=== PATIENT | female | born 1950 | race Caucasian/White ===

== ENCOUNTER 2018-07-30 06:21 | Inpatient (IN) | payer MEDICARE ==
[2018-07-29 17:17] VITALS: BMI 28.3
[2018-07-30] MEDS ORDERED: Rocuronium 10 mg/ml (5 ml) ONE (07:00)
[2018-07-30] MEDS ORDERED: Propofol 10 mg/ml Inj (20 ML) ONE (07:00)
[2018-07-30] MEDS ORDERED: Succinylcholine Chloride 20 mg/ml Syr (5 ml) IV ONE (07:00)
[2018-07-30] MEDS ORDERED: Lidocaine 4% (Laryng-O-Jet) Kit MM ONE (07:07)
[2018-07-30] MEDS ORDERED: ceFAZolin IV 1 gm in Dextrose 2 GM/100 ML BAG IVPB ONE (07:09)
[2018-07-30] MEDS ORDERED: Absorbable Gelatin Sponge Size 12-7 ONE (07:09)
[2018-07-30] MEDS ORDERED: Lidocaine 1% w Epi 1:100,000 Inj ONE (07:09)
[2018-07-30] MEDS ORDERED: Bupivacaine 0.5% Inj(30mL) ONE (07:09)
[2018-07-30] MEDS ORDERED: Thrombin Topical 5,000 Int Units Spray Kit ONE (07:10)
[2018-07-30] MEDS ORDERED: Phenylephrine 10 mg/ml Inj ONE (07:11)
--- NOTE | 2018-07-30 07:25 | CP.PCM.CON ---
History of Present Illness - History of Present Illness History of Present Illness: Neurosurgical H&P/consult Patient is a 68 y/o female who presents for elective lumbar laminotomy. The patient has had chronic lower back pain for many years. Over the past few months the pain has progressively worsened, with new symptoms of radiating pain/numbness/tingling to both LE, worse to the RLE. Her symptoms have been resistant to conservative means, with PT and oral medications. She has had much difficulties with her daily activities such as walking and sitting due to her pain. She denies any bowel/bladder dysfunction. She also denies CP/SOB/N/V/D/fever/dysuria/melena. Review of Systems - Review of Systems All systems: reviewed and no additional remarkable complaints except Review of Systems: as per HPI Past Patient History - Past Medical History & Family History Past Medical History?: Yes Past Family History: Reviewed and not pertinent - Past Social History Smoking Status: Never Smoked Alcohol: None Drugs: Denies - CARDIAC Hx Cardiac Disorders: Yes Hx Hypercholesterolemia: Yes Hx Hypertension: Yes - PULMONARY Hx Respiratory Disorders: No - NEUROLOGICAL Hx Neurological Disorder: No Other/Comment: NUMBNESS AND TINGLING SENSATION BOTH LEGS-PINGED NERVE ON THE RIGHT SIDE - HEENT Hx HEENT Problems: No - RENAL Hx Chronic Kidney Disease: No - ENDOCRINE/METABOLIC Hx Endocrine Disorders: Yes Hx Diabetes Mellitus Type 2: Yes - HEMATOLOGICAL/ONCOLOGICAL Hx Blood Disorders: No Hx Blood Transfusions: No - INTEGUMENTARY Hx Dermatological Problems: No - MUSCULOSKELETAL/RHEUMATOLOGICAL Hx Musculoskeletal Disorders: Yes Hx Arthritis: Yes Hx Falls: No - GASTROINTESTINAL Hx Gastrointestinal Disorders: No - GENITOURINARY/GYNECOLOGICAL Hx Genitourinary Disorders: No - PSYCHIATRIC Hx Psychophysiologic Disorder: No - SURGICAL HISTORY Hx Surgeries: Yes Other/Comment: EXPLOR LAP-1976 - ANESTHESIA Hx Anesthesia: Yes Hx Anesthesia Reactions: No Hx Malignant Hyperthermia: No Has any member of the family had a problem w/ anesthesia?: No Meds Allergies/Adverse Reactions: Allergies Allergy/AdvReac Type Severity Reaction Status Date / Time No Known Allergies Allergy Verified 07/29/18 17:17 Physical Exam - Constitutional Appears: Well, No Acute Distress - Head Exam Head Exam: ATRAUMATIC, NORMOCEPHALIC - Eye Exam Eye Exam: EOMI, Normal appearance, PERRL - ENT Exam ENT Exam: Mucous Membranes Moist - Respiratory Exam Respiratory Exam: NORMAL BREATHING PATTERN - Extremities Exam Extremities exam: Positive for: normal inspection - Back Exam Additional comments: mild midline and paraspinal tenderness b/l no lesions/masses/erythema sensation intact SP/DP/TN motor intact EHL/FHL/TA/G neg clonus neg SLR b/l - Neurological Exam Neurological exam: Alert, CN II-XII Intact, Oriented x3 - Psychiatric Exam Psychiatric exam: Normal Affect, Normal Mood - Skin Skin Exam: Normal Color, Warm Assessment & Plan (1) Lumbar spondylosis Assessment and Plan: -OR today for lumbar laminotomy L3-4, possible other levels -Risks/benefits/alternatives explained to patient who understands and agrees to proceed with above procedure. -NPO -Medical/cardiac clearance in chart -above d/w Dr. Chambers in agreement Status: Acute
[2018-07-30] MEDS ORDERED: Oxycodone/Acetaminophen 5/325 mg Tab PO PRN ×2 (07:32)
[2018-07-30] MEDS ORDERED: Lactated Ringer's 1,000 ML IV ONE (07:45)
[2018-07-30] MEDS ORDERED: Sodium Chloride 0.9% 1,000 ML IV SCH (07:45)
[2018-07-30] MEDS ORDERED: Dexamethasone 4 mg/1 ml ONE (08:22)
[2018-07-30] MEDS ORDERED: ePHEDrine 50 mg/ml Inj ONE (08:29)
[2018-07-30] MEDS ORDERED: Sodium Chloride 0.9% 10 ML IV ONE (08:29)
[2018-07-30] MEDS ORDERED: Neostigmine 1:1000 (1 mg/ml) Inj ONE (08:45)
[2018-07-30] MEDS ORDERED: Bupivacaine 0.5% 50 ML IJ ONE ×2 (08:52→08:57)
[2018-07-30] MEDS ORDERED: ceFAZolin 1 GM in Sodium Chloride 0.9% 100 ML IVPB SCH (09:00)
[2018-07-30] MEDS: Lactated Ringer's 1,000 ML IV SCH ×2 (09:15→20:00)
[2018-07-30] MEDS ORDERED: HYDROmorphone 0.5 mg/0.5 ml ISec IVP PRN (09:24)
--- NOTE | 2018-07-30 10:20 | PCM.SURG1 ---
Surgeon's Initial Post Op Note - Surgeon's Notes Surgeon: Nathan Chambers MD [employer] Contractor: Damon López PA-C Type of Anesthesia: General Endo Anesthesia Administered By: Hema Monaco MD Pre-Operative Diagnosis: Lumbar spondylosis Operative Findings: see complete operative report Post-Operative Diagnosis: L3-L4 spondylosis Operation Performed: L3-L4 laminotomy Specimen/Specimens Removed: none Estimated Blood Loss: EBL {In ML}: 100 Blood Products Given: N/A Drains Used: Naeem Mahajan (R) Post-Op Condition: Good Date of Surgery/Procedure: 07/30/18 Time of Surgery/Procedure: 08:06
--- NOTE | 2018-07-30 13:55 | CP.PCM.HP ---
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 Pt states that her lower back pain started approx 2013, initially tolerable but since January 2018, pain significantly worsened. No relief with PO pain meds, at times pain radiated down her legs, associated with numbness and tingling. Denies chest pain, dyspnea, palpitations, abdominal pain, n/v/d/c fevers, chills. PMHx: HTN, NIDDM, lumbar spondylosis SurgHx: Ex lap for suspected extopic 1976 FHx: hx of HTN in mother SHx: denies ETOH, smoking and illicit drug use Allergies: Streptomycin-rash Meds: lisinopril and Metformin Present on Admission - Present on Admission Any Indicators Present on Admission: No Review of Systems - Constitutional Constitutional: absent: Chills, Fever - Cardiovascular Cardiovascular: absent: Chest Pain, Dyspnea, Palpitations - Respiratory Respiratory: absent: Cough, Dyspnea - Gastrointestinal Gastrointestinal: absent: Abdominal Pain - Musculoskeletal Musculoskeletal: Other (low back pain with radiation down the legs) - Neurological Neurological: Numbness, Tingling Past Patient History - Past Medical History & Family History Past Medical History?: Yes Past Family History: Reviewed and not pertinent - Past Social History Smoking Status: Never Smoked Alcohol: None Drugs: Denies Home Situation {Lives}: With Family - CARDIAC Hx Cardiac Disorders: Yes Hx Hypercholesterolemia: Yes Hx Hypertension: Yes - PULMONARY Hx Respiratory Disorders: No - NEUROLOGICAL Hx Neurological Disorder: No Other/Comment: NUMBNESS AND TINGLING SENSATION BOTH LEGS-PINGED NERVE ON THE RIGHT SIDE - HEENT Hx HEENT Problems: No - RENAL Hx Chronic Kidney Disease: No - ENDOCRINE/METABOLIC Hx Endocrine Disorders: Yes Hx Diabetes Mellitus Type 2: Yes - HEMATOLOGICAL/ONCOLOGICAL Hx Blood Disorders: No Hx Blood Transfusions: No - INTEGUMENTARY Hx Dermatological Problems: No - MUSCULOSKELETAL/RHEUMATOLOGICAL Hx Musculoskeletal Disorders: Yes Hx Arthritis: Yes Hx Falls: No - GASTROINTESTINAL Hx Gastrointestinal Disorders: No - GENITOURINARY/GYNECOLOGICAL Hx Genitourinary Disorders: No - PSYCHIATRIC Hx Psychophysiologic Disorder: No - SURGICAL HISTORY Hx Surgeries: Yes Other/Comment: EXPLOR LAP-1976 - ANESTHESIA Hx Anesthesia: Yes Hx Anesthesia Reactions: No Hx Malignant Hyperthermia: No Has any member of the family had a problem w/ anesthesia?: No Meds Allergies/Adverse Reactions: Allergies Allergy/AdvReac Type Severity Reaction Status Date / Time streptomycin Allergy RASH Verified 07/30/18 07:56 Physical Exam - Constitutional Appears: No Acute Distress - Eye Exam Eye Exam: EOMI, Normal appearance - ENT Exam ENT Exam: Mucous Membranes Moist - Respiratory Exam Respiratory Exam: Clear to Auscultation Bilateral, NORMAL BREATHING PATTERN. absent: Wheezes - Cardiovascular Exam Cardiovascular Exam: REGULAR RHYTHM, +S1, +S2 - GI/Abdominal Exam GI & Abdominal Exam: Normal Bowel Sounds, Soft. absent: Tenderness Additional comments: obese Abdominal binder noted - Extremities Exam Extremities exam: Positive for: normal inspection. Negative for: pedal edema - Back Exam Back exam: absent: CVA tenderness (L), CVA tenderness (R) Additional comments: abdominal binder noted, Drain noted, draining sanguineous fluid. Dressing intact. - Neurological Exam Neurological exam: Alert, Oriented x3 - Psychiatric Exam Psychiatric exam: Normal Mood Results - Vital Signs Recent Vital Signs: Last Vital Signs Temp 99.8 F H 07/30/18 13:15 Pulse 77 07/30/18 13:15 Resp 18 07/30/18 13:15 BP 112/53 L 07/30/18 13:15 Pulse Ox 98 07/30/18 13:15 Assessment & Plan (1) Hypertension Status: Chronic (2) Diabetes 1.5, managed as type 2 Status: Chronic (3) Lumbar spondylosis Status: Acute - Assessment and Plan (Free Text) Assessment: Assessment/Plan: 68 YOMD, female with PMHx of lumbar spondylosis, HTN and NIDDM is admitted for elective laminectomy. Neurosurgery on board, s/p L3-L4 laminotomy with drain, POD0. Lumbar spondylosis -acute on chronic -Neurosurg on board: Dr. Chambers, S/p L3-L4 laminotomy, POD 0 -pain management -PT/OT HTN/NIDDM -chronic, controlled -low dose sliding scale, hypoglycemia protocol -hold metformin for now -c/w with home meds DVT -SCDs for now -f/u neurosurg recs regarding Lovenox <Bill Howard - Last Filed: 08/03/18 20:44> Results - Vital Signs Recent Vital Signs: Last Vital Signs Temp 98.3 F 08/02/18 08:18 Pulse 57 L 08/02/18 08:28 Resp 20 08/02/18 08:18 BP 135/77 08/02/18 08:18 Pulse Ox 95 08/02/18 08:18 - Labs Result Diagrams: 08/01/18 06:00 08/01/18 06:00 Assessment & Plan - Assessment and Plan (Free Text) Plan: I was present during evaluation and discussed with Dr Millan re plans of care and mgt. Bill Howard M.D.
--- NOTE | 2018-07-30 14:33 | RAD ---
Date of service: 07/30/2018 PROCEDURE: Intraoperative Fluoroscopy. HISTORY: LUMBAR LAMINECTOMY MICRODISCECTOMY FINDINGS: Fluoroscopic assistance was provided for micro discectomy. Please refer to the operative report from ROMEO Stoner. Total fluoroscopic time (continuous mode) utilized during the procedure 5.8 seconds. Total exam DLP: 2.18 (mGy).
[2018-07-30] MEDS ORDERED: Glucagon Recombinant 1 mg Inj IM PRN (15:17)
[2018-07-30] MEDS ORDERED: Dextrose 50% SYRINGE Inj (50 ml) IV PRN (15:17)
--- NOTE | 2018-07-30 15:26 | OP ---
PROCEDURE DATE: 07/30/2018 PREOPERATIVE DIAGNOSIS: Lumbar spondylosis. POSTOPERATIVE DIAGNOSIS: Lumbar spondylosis. PROCEDURE: L3-L4 lumbar laminectomy and L3-L4 posterolateral fusion. Fluoroscopy has been used. Microscope has been used. SURGEON: Nathan Chambers MD BIOTECHNICIAN: Damon López, physician temporary office assistant. Damon López has stayed throughout the case from the beginning to the end and helped me to perform the surgery. ANESTHESIA: General endotracheal anesthesia. DESCRIPTION OF PROCEDURE: The patient was brought to the operating room and placed in a prone position on a Naeem table. Care was taken to protect all the pressure points. Back of the lumbar area thoroughly prepped and draped in a same sterile manner after marking the skin incisions for lumbar laminectomy at L3-4. After prepping and draping the area, skin has been incised. Bleeding skin has been controlled with bipolar bank guard. After using a Bovie bank guard, paraspinal muscles have been detached, attachments of spinous process, lamina of L3-L4 bilaterally. Identification of levels has been done with the help of fluoroscopy. Under microscopic magnification by using a Leksell rongeur, the spinous process of L3-L4 had been removed. By using a high-speed drill, the lamina of L3-L4 and medial part of the L3-L4 have been drilled. There is a significant decrease in the interlaminar distant from medial facet of hypertrophy and thinned out lamina, medial part of the facets, ligamentum flavum have been removed. It is noted that the microinstability by the opening of the joint on both sides. At this point, the lateral aspect of facet joint and transverse process have been decorticated. At this point, the bone had been removed from the Leksell, the spinous process have been crushed and it has been placed achieving a posterolateral fusion. After that, hemostasis was best achieved. Naeem drain was placed in the wound and brought out through a separate stab neck skin incision. Muscles and fascia were closed with 1 Vicryl, subcutaneous tissue with 3-0 Vicryl, and the skin has been with intradermal 3-0 Vicryl stitches. The patient tolerated the procedure. After the procedure, mobilized to the recovery room in stable condition. Nathan Chambers MD [facility] # [id number]
[2018-07-30] MEDS: Insulin Regular 100 units/ml SC SCH ×2 (16:25→23:00)
[2018-07-30] MEDS: ceFAZolin 1 GM in Sodium Chloride 0.9% 100 ML IVPB SCH (16:57)
[2018-07-30] MEDS ORDERED: Alum-Mag Hydrox-Simethicone Susp (30 mL) PO PRN (21:22)
[2018-07-31] MEDS: ceFAZolin 1 GM in Sodium Chloride 0.9% 100 ML IVPB SCH ×4 (00:10→23:30)
[2018-07-31 06:08] LABS: HEMOGLOBIN 11.4 g/dL (12.0-16.0); MEAN CELL VOLUME 92.3 fl (81.0-99.0); MEAN CORPUSCULAR HEMOGLOBIN 30.6 pg (27.0-31.0); MEAN CORPUSCULAR HGB CONC 33.1 g/dL (33.0-37.0); RBC 3.72 Mil/uL (3.80-5.20); RED CELL DISTRIBUTION WIDTH 13.5 % (11.5-14.5); WHITE BLOOD COUNT 11.3 K/uL (4.8-10.8)
[2018-07-31 06:18] LABS: BLOOD UREA NITROGEN 17 mg/dl (7-17); CALCIUM 9.2 mg/dL (8.4-10.2); GFR NON-AFRICAN AMERICAN > 60
[2018-07-31] MEDS: Lactated Ringer's 1,000 ML IV SCH ×3 (09:34→23:32)
[2018-07-31] MEDS: Insulin Regular 100 units/ml SC SCH ×4 (09:34→21:16)
--- NOTE | 2018-07-31 11:24 | CP.PCM.PN ---
Subjective - Date & Time of Evaluation Date of Evaluation: 07/31/18 Time of Evaluation: 10:00 - Subjective Subjective: Patient seen and examined at bedside comfortable. Pain well controlled. Tolerated PT well. No acute events overnight. Objective - Vital Signs/Intake and Output Vital Signs (last 24 hours): Temp Pulse Resp BP Pulse Ox 97.5 F L 60 20 118/73 96 07/31/18 08:33 07/31/18 08:33 07/31/18 08:33 07/31/18 08:33 07/31/18 08:33 - Medications Medications: Current Medications Acetaminophen (Tylenol 325mg Tab) 650 mg PO Q4 PRN PRN Reason: Fever 101 degrees fahrenheit Acetaminophen (Tylenol 325mg Tab) 650 mg PO Q6 PRN PRN Reason: Pain, Mild (1-3) Last Admin: 07/31/18 05:47 Dose: 650 mg Al Hydrox/Mg Hydrox/Simethicone (Maalox Plus 30 Ml) 30 ml PO Q4 PRN PRN Reason: Indigestion / Heartburn Ascorbic Acid (Vitamin C 500 Mg Tab) 500 mg PO DAILY [facility] Last Admin: 07/31/18 09:36 Dose: 500 mg Aspirin (Ecotrin) 81 mg PO DAILY [facility] Last Admin: 07/31/18 09:37 Dose: 81 mg Cyclobenzaprine HCl (Flexeril) 10 mg PO Q8 PRN PRN Reason: Muscle spasm Dextrose (Dextrose 50% Inj) 0 ml IV STAT PRN; Protocol PRN Reason: Hypoglycemia Protocol Dextrose (Glutose 15) 0 gm PO ONCE PRN; Protocol PRN Reason: Hypoglycemia Protocol Docusate Sodium (Colace) 100 mg PO BID [facility] Last Admin: 07/31/18 09:37 Dose: 100 mg Glucagon (Glucagen Diagnostic Kit) 0 mg IM STAT PRN; Protocol PRN Reason: Hypoglycemia Protocol Lactated Ringer's (Lactated Ringer's) 1,000 mls @ 100 mls/hr IV .Q10H [facility] Last Admin: 07/31/18 09:34 Dose: 100 mls/hr Cefazolin Sodium 1 gm/ Sodium (Chloride) 100 mls @ 100 mls/hr IVPB Q8@0000,08 00,1600 [facility]; Protocol Last Admin: 07/31/18 09:30 Dose: 100 mls/hr Insulin Human Regular (Humulin R) 0 units SC ACHS [facility]; Protocol Last Admin: 07/31/18 09:34 Dose: 1 unit Lisinopril (Zestril) 5 mg PO DAILY [facility] Last Admin: 07/31/18 09:36 Dose: 5 mg Morphine Sulfate (Morphine) 1 mg IVP Q4 PRN PRN Reason: Pain, severe (8-10) Ondansetron HCl (Zofran Inj) 4 mg IVP ONCE PRN PRN Reason: Nausea/Vomiting Oxycodone/Acetaminophen (Percocet 5/325 Mg Tab) 2 tab PO Q4 PRN PRN Reason: Pain, moderate (4-7) Stop: 08/02/18 07:33 - Labs Labs: 07/31/18 05:35 07/31/18 05:35 - Back Exam Additional comments: Abd binder in place Dressings CDI SHARIF drain intact with moderate bloody drainage (80 ml in 24 hrs) sensation intact SP/DP/TN motor intact EHL/FHl/TA/G neg clonus Assessment and Plan (1) Lumbar spondylosis Assessment & Plan: POD#1 s/p L3-4 laminotomy -maintain SHARIF drain, monitor drain output, possible removal tomorrow -continue IV abx while drain is maintained -PT/OT -abd binder for comfort -pain control -d/c planning -above d/w Dr. Chambers in agreement Status: Acute
[2018-08-01] MEDS: Lactated Ringer's 1,000 ML IV SCH ×2 (04:06→21:30)
[2018-08-01 06:55] LABS: HEMOGLOBIN 10.5 g/dL (12.0-16.0); MEAN CELL VOLUME 92.1 fl (81.0-99.0); MEAN CORPUSCULAR HEMOGLOBIN 30.9 pg (27.0-31.0); MEAN CORPUSCULAR HGB CONC 33.6 g/dL (33.0-37.0); RBC 3.39 Mil/uL (3.80-5.20); RED CELL DISTRIBUTION WIDTH 13.9 % (11.5-14.5); WHITE BLOOD COUNT 8.4 K/uL (4.8-10.8)
[2018-08-01] MEDS: Insulin Regular 100 units/ml SC SCH ×4 (07:01→22:15)
[2018-08-01 07:06] LABS: BLOOD UREA NITROGEN 17 mg/dl (7-17); CALCIUM 8.5 mg/dL (8.4-10.2); GFR NON-AFRICAN AMERICAN > 60
[2018-08-01] MEDS: ceFAZolin 1 GM in Sodium Chloride 0.9% 100 ML IVPB SCH (09:41)
--- NOTE | 2018-08-01 12:48 | CP.PCM.PN ---
Subjective - Date & Time of Evaluation Date of Evaluation: 08/01/18 Time of Evaluation: 08:00 - Subjective Subjective: Patient states pain is well controlled. TOlerating PT well. Still with tingling in legs. Objective - Vital Signs/Intake and Output Vital Signs (last 24 hours): Temp Pulse Resp BP Pulse Ox 97.9 F 63 20 108/69 94 L 08/01/18 08:39 08/01/18 09:42 08/01/18 08:39 08/01/18 09:42 08/01/18 08:39 - Medications Medications: Current Medications Acetaminophen (Tylenol 325mg Tab) 650 mg PO Q4 PRN PRN Reason: Fever 101 degrees fahrenheit Acetaminophen (Tylenol 325mg Tab) 650 mg PO Q6 PRN PRN Reason: Pain, Mild (1-3) Last Admin: 08/01/18 09:44 Dose: 650 mg Al Hydrox/Mg Hydrox/Simethicone (Maalox Plus 30 Ml) 30 ml PO Q4 PRN PRN Reason: Indigestion / Heartburn Ascorbic Acid (Vitamin C 500 Mg Tab) 500 mg PO DAILY [facility] Last Admin: 08/01/18 09:42 Dose: 500 mg Aspirin (Ecotrin) 81 mg PO DAILY [facility] Last Admin: 08/01/18 09:42 Dose: 81 mg Cyclobenzaprine HCl (Flexeril) 10 mg PO Q8 PRN PRN Reason: Muscle spasm Last Admin: 07/31/18 15:59 Dose: 10 mg Dextrose (Dextrose 50% Inj) 0 ml IV STAT PRN; Protocol PRN Reason: Hypoglycemia Protocol Dextrose (Glutose 15) 0 gm PO ONCE PRN; Protocol PRN Reason: Hypoglycemia Protocol Docusate Sodium (Colace) 100 mg PO BID [facility] Last Admin: 08/01/18 09:41 Dose: 100 mg Glucagon (Glucagen Diagnostic Kit) 0 mg IM STAT PRN; Protocol PRN Reason: Hypoglycemia Protocol Lactated Ringer's (Lactated Ringer's) 1,000 mls @ 100 mls/hr IV .Q10H [facility] Last Admin: 08/01/18 04:06 Dose: Not Given Cefazolin Sodium 1 gm/ Sodium (Chloride) 100 mls @ 100 mls/hr IVPB Q8@0000,0800,1600 [facility]; Protocol Last Admin: 08/01/18 09:41 Dose: 100 mls/hr Insulin Human Regular (Humulin R) 0 units SC ACHS [facility]; Protocol Last Admin: 08/01/18 07:01 Dose: Not Given Lisinopril (Zestril) 5 mg PO DAILY [facility] Last Admin: 08/01/18 09:42 Dose: 5 mg Morphine Sulfate (Morphine) 1 mg IVP Q4 PRN PRN Reason: Pain, severe (8-10) Ondansetron HCl (Zofran Inj) 4 mg IVP ONCE PRN PRN Reason: Nausea/Vomiting Oxycodone/Acetaminophen (Percocet 5/325 Mg Tab) 2 tab PO Q4 PRN PRN Reason: Pain, moderate (4-7) Stop: 08/02/18 07:33 - Labs Labs: 08/01/18 06:00 08/01/18 06:00 - Back Exam Additional comments: drain 40cc overnight, 90 last 24 hours Assessment and Plan (1) Lumbar spondylosis Assessment & Plan: POD#1 drain left intact per Dr. Chambers cont PT/OT plan for d/c home after drainage subsides Status: Acute
[2018-08-02] MEDS: Insulin Regular 100 units/ml SC SCH ×2 (06:47→12:22)
[2018-08-02 08:19] VITALS: BP 135/77; RESP 20; TEMP 98.3; O2SAT 95
[2018-08-02 08:30] VITALS: PULSE 57
--- NOTE | 2018-08-03 21:40 | CP.PCM.PN ---
Subjective - Date & Time of Evaluation Date of Evaluation: 07/31/18 Time of Evaluation: 11:00 - Subjective Subjective: Patient is doing well Noted significant amount of drainage for wound Has no fever Has minimal pain on the op site Objective - Vital Signs/Intake and Output Vital Signs (last 24 hours): Temp Pulse Resp BP Pulse Ox 98.3 F 57 L 20 135/77 95 08/02/18 08:18 08/02/18 08:28 08/02/18 08:18 08/02/18 08:18 08/02/18 08:18 - Labs Labs: 08/01/18 06:00 08/01/18 06:00 - Head Exam Head Exam: NORMAL INSPECTION - Eye Exam Eye Exam: Normal appearance - ENT Exam ENT Exam: Mucous Membranes Moist - Respiratory Exam Respiratory Exam: Clear to Ausculation Bilateral - Cardiovascular Exam Cardiovascular Exam: REGULAR RHYTHM - Neurological Exam Neurological Exam: Awake, Oriented x3 Assessment and Plan (1) Lumbar spondylosis Status: Acute (2) Hypertension Status: Chronic (3) Diabetes mellitus type 2 in obese Status: Acute - Assessment and Plan (Free Text) Plan: Cont meds Cont tx Cont PT monitor drainage
--- NOTE | 2018-08-03 21:43 | CP.PCM.PN ---
Subjective - Date & Time of Evaluation Date of Evaluation: 08/01/18 Time of Evaluation: 11:00 - Subjective Subjective: Fairly stable Still with significant drainage. Has no fever. Objective - Vital Signs/Intake and Output Vital Signs (last 24 hours): Temp Pulse Resp BP Pulse Ox 98.3 F 57 L 20 135/77 95 08/02/18 08:18 08/02/18 08:28 08/02/18 08:18 08/02/18 08:18 08/02/18 08:18 - Labs Labs: 08/01/18 06:00 08/01/18 06:00 - Head Exam Head Exam: NORMAL INSPECTION - Eye Exam Eye Exam: Normal appearance - ENT Exam ENT Exam: Mucous Membranes Moist - Respiratory Exam Respiratory Exam: Clear to Ausculation Bilateral - Cardiovascular Exam Cardiovascular Exam: REGULAR RHYTHM - GI/Abdominal Exam GI & Abdominal Exam: Normal Bowel Sounds Assessment and Plan (1) Lumbar spondylosis Status: Acute (2) Hypertension Status: Chronic (3) Diabetes mellitus type 2 in obese Status: Acute - Assessment and Plan (Free Text) Plan: Cont meds Cont tx Cont PT Pain meds prn Dc plan for am
--- NOTE | 2018-08-03 21:44 | CP.PCM.DIS ---
Provider - Provider Date of Admission: 07/30/18 07:32 Attending physician: Bill Howard MD Consults: 07/30/18 07:00 Neuro Surgery Consult Routine Comment: Consulting Provider: Nathan Murray Consulting Physician: Nathan Murray Reason for Consult: Lumbar spondylosis 07/30/18 07:32 Case Management Referral Routine Comment: Physician Instructions: Reason For Exam: Reason for Referral: Discharge Planning Time Spent in preparation of Discharge (in minutes): 30 Diagnosis - Discharge Diagnosis (1) Lumbar spondylosis Status: Acute (2) Hypertension Status: Chronic (3) Diabetes mellitus type 2 in obese Status: Acute Hospital Course - Lab Results Lab Results: Most Recent Lab Values WBC 8.4 K/uL (4.8-10.8) 08/01/18 06:00 RBC 3.39 Mil/uL (3.80-5.20) L 08/01/18 06:00 Hgb 10.5 g/dL (12.0-16.0) L 08/01/18 06:00 Hct 31.2 % (34.0-47.0) L 08/01/18 06:00 MCV 92.1 fl (81.0-99.0) 08/01/18 06:00 MCH 30.9 pg (27.0-31.0) 08/01/18 06:00 MCHC 33.6 g/dL (33.0-37.0) 08/01/18 06:00 RDW 13.9 % (11.5-14.5) 08/01/18 06:00 Plt Count 191 K/uL (130-400) 08/01/18 06:00 Sodium 140 mmol/l (132-148) 08/01/18 06:00 Potassium 3.8 MMOL/L (3.6-5.0) 08/01/18 06:00 Chloride 110 mmol/L (98-107) H 08/01/18 06:00 Carbon Dioxide 24 mmol/L (22-30) 08/01/18 06:00 Anion Gap 10 (10-20) 08/01/18 06:00 BUN 17 mg/dl (7-17) 08/01/18 06:00 Creatinine 0.9 mg/dl (0.7-1.2) 08/01/18 06:00 Est GFR ( Amer) > 60 08/01/18 06:00 Est GFR (Non-Af Amer) > 60 08/01/18 06:00 Random Glucose 108 mg/dL (65-105) H 08/01/18 06:00 Calcium 8.5 mg/dL (8.4-10.2) 08/01/18 06:00 - Hospital Course Hospital Course: This is a 68 y/o female with hx of lumbar spomdylosis had undergone L3L4 laminotomy. Perioperative period ws unremarkable She was monitored for amount of drainage. She did very well and had minimal pain. She was able to do pT and ambulate independently. She was discharged on the 3rd day post op and drain was removed. She was advised to follow up with Dr murray. Discharge Exam - Head Exam Head Exam: NORMAL INSPECTION - Eye Exam Eye Exam: Normal appearance - Respiratory Exam Respiratory Exam: Clear to PA & Lateral - Cardiovascular Exam Cardiovascular Exam: REGULAR RHYTHM - GI/Abdominal Exam GI & Abdominal Exam: Normal Bowel Sounds - Neurological Exam Neurological exam: CN II-XII Intact, Oriented x3 Discharge Plan - Follow Up Plan Condition: GOOD Disposition: HOME/ ROUTINE Additional Instructions: Discharge to home cont pain meds prn follow up with Dr murray in 1 week.
== END 2018-08-02 14:38 | disposition home or self-care (01) | DRG 460 ==
LOC: H.OPSURG 06:21 → H.MEDSURG1 07:32
PROVIDERS: ADMIT Family Medicine; ATTEND Family Medicine
PROC: 0SG0071 Fusion of Lumbar Vertebral Joint with Autologous Tissue Substitute, Posterior Approach, Posterior Column, Open Approach (ICD-10-PCS; principal; 2018-07-30 07:45)
DX: M47.816 Spondylosis without myelopathy or radiculopathy, lumbar region (principal); E11.9 Type 2 diabetes mellitus without complications; E78.00 Pure hypercholesterolemia, unspecified; I10 Essential (primary) hypertension; E66.9 Obesity, unspecified